=== PATIENT | male | born 1970 | race Two or more races ===

== ENCOUNTER → 2024-09-27 | Outpatient (CLI) | payer MEDICARE, MEDICAID, SELFPAY | END | disposition home or self-care (01) | PROVIDERS: PCP Family Medicine; Referring Provider Internal Medicine; Visit Provider Internal Medicine | DX: Z53.29 Procedure and treatment not carried out because of patient's decision for other reasons (principal) ==

== ENCOUNTER → 2024-12-13 | Outpatient (CLI) | payer MEDICARE, MEDICAID, SELFPAY ==
--- NOTE | 2024-12-13 09:30 | XR_ITS ---
Examination: CT abdomen, without intravenous contrast. CT abdomen, with intravenous contrast. Sagittal and coronal 2-D reconstructions. Time of exam:2024 0937 hours Comparison February 16, 2020 INDICATIONS: Diagnosis of hepatomegaly, right upper abdominal pain 2 years CTDI: vol (mGy) 19.5 DLP: (mGycm) 651 Technique: Multiple 3.0 mm axial noncontrast images of the abdomen have been obtained. Multiple 3.0 mm axial images post administration abdomen pre and post 60 cc [id number] intravenous contrast have been obtained. Sagittal and coronal 3-D reconstructions have been obtained. Low dose protocols were performed. One or more of the following dose reduction techniques were used; automated exposure control, adjustment of the mA and/or KV according to patient size, use of iterative reconstruction technique. Findings: Hepatomegaly 18 cm Diffuse fatty infiltration throughout the liver No gallstones No pancreatic or adrenal mass 2 mm nonobstructing left renal calculus, no hydronephrosis or ureteral calculi Aorta normal size Small lymph nodes in the right lower mesentery Normal appendix No bowel obstruction IMPRESSION: Hepatomegaly 18 cm diffuse fatty infiltration throughout the liver 2 mm nonobstructing left renal calculus
== END | disposition home or self-care (01) ==
LOC: CCTX 09:08
PROVIDERS: PCP Family Medicine; Referring Provider Internal Medicine; Visit Provider Internal Medicine
DX: K76.0 Fatty (change of) liver, not elsewhere classified (principal); N20.0 Calculus of kidney
CPT/HCPCS: 74170; A4649; Q9967